=== PATIENT | male | born 1990 | race Caucasian/White ===

== ENCOUNTER 2021-01-20 14:24 | Emergency (ER) | payer OTHER ==
[2021-01-20] MEDS ORDERED: Acetaminophen 500 MG Tab PO ONE (14:58)
[2021-01-20] MEDS ORDERED: Ondansetron 4 MG Tab.DIS PO ONE (14:58)
--- NOTE | 2021-01-20 15:04 | EDM.PDOC ---
ED HPI GENERAL MEDICAL PROBLEM - General Chief Complaint: Head Injury Stated Complaint: FALL AND HIT HEAD Time Seen by Provider: 01/20/21 14:45 Source of Information: Reports: Patient, Family, RN. Denies: Old Records History Limitations: Reports: No Limitations - History of Present Illness INITIAL COMMENTS - FREE TEXT/NARRATIVE: 30 yo male from [facility] was visiting his family locally and fell on the ice and struck the back of his head. Since the fall he has had some amnesia with repeating himself and a mild MAY, and mild nausea without vomiting. He has no back or extremity pain, but does have some mild neck stiffness. There was no bleeding. He is not on any anticoagulants. He thinks he may have had a mild concussion once in the past. Not tx prior to arrival. Is here with his parents. Onset: Today, Sudden Onset Date: 01/20/21 Duration: Hour(s): (2), Improving Location: Reports: Head Quality: Reports: Ache Severity: Mild Improves with: Reports: Other (time) Worsens with: Reports: Other (none) Context: Reports: Trauma Associated Symptoms: Reports: Headaches (mild), Nausea/Vomiting (mild, no vomiting), Other (amnesia, improving). Denies: Fever/Chills Treatments PRODUCE ASSOCIATE: Reports: Other (see below) (none) Headache Pain Score (Numeric/FACES): 4 - Related Data Allergies Allergy/AdvReac Type Severity Reaction Status Date / Time Sulfa (Sulfonamide Allergy Arrhythmias Verified 01/20/21 14:46 Antibiotics) Past Medical History - Past Health History Medical/Surgical History: Denies Medical/Surgical History Social & Family History - Tobacco Use Tobacco Use Status *Q: Never Tobacco User ED ROS GENERAL - Review of Systems Review Of Systems: See Below Constitutional: Reports: No Symptoms HEENT: Reports: No Symptoms Respiratory: Reports: No Symptoms Cardiovascular: Reports: No Symptoms GI/Abdominal: Reports: Nausea. Denies: Diarrhea, Vomiting : Reports: No Symptoms Musculoskeletal: Reports: Neck Pain (mild) Skin: Reports: No Symptoms Neurological: Reports: Confusion (amnesia, improving), Headache (mild) Psychiatric: Reports: No Symptoms ED EXAM, HEAD INJURY - Physical Exam Exam: See Below Exam Limited By: No Limitations General Appearance: Alert, WD/WN, No Apparent Distress Head: Atraumatic, Normocephalic, Scalp Tenderness (minimal occipital). No: Scalp Lacerations, Scalp Swelling, Scalp Abrasions, Scalp Ecchymosis, Scalp Hematoma, Active Bleeding, Facial Swelling, Raccoon Eyes Nexus Criteria: No: Evidence of Intoxication, Altered Level of Consciousness, Focal Neurological Deficit Eyes: Right Eye: Normal Fundi, Bilateral Eye: EOMI, Normal Inspection, PERRL Ears: Normal External Exam, Normal Canal, Hearing Grossly Normal, Normal TMs Nose: Normal Inspection, No Blood. No: Clear Rhinorrhea Throat/Mouth: Normal Inspection, Normal Lips, Normal Oropharynx, Normal Voice, No Airway Compromise Neck: Full Range of Motion, Normal Alignment, Normal Inspection. No: Limited Range of Motion (subjective mild stiffness only) Respiratory: No Respiratory Distress, Lungs Clear, Normal Breath Sounds, No Accessory Muscle Use Cardiovascular: Regular Rate, Rhythm, No Edema Back Exam: Normal Inspection Extremities: Normal Inspection, Normal Range of Motion, Non-Tender Neurologic: head worker II-XII nml As Tested, No Motor/Sensory Deficits, Alert, Normal Mood/Affect, Oriented x 3 Skin: Normal Color, Warm/Dry - Melecio Coma Score Best Eye Response ([place]lecio): (4) Open Spontaneously Best Verbal Response ([place]): (5) Oriented Best Motor Response ([place]): (6) Obeys Commands Melecio Total: 15 Course - Vital Signs Last Recorded V/S: Last Vital Signs Temp 36.8 C 01/20/21 14:42 Pulse 98 01/20/21 14:42 Resp 16 01/20/21 14:42 BP 143/73 H 01/20/21 14:42 Pulse Ox 99 01/20/21 14:42 - Orders/Labs/Meds Meds: Medications Discontinued Medications Generic Name Dose Route Start Last Admin Trade Name Freq PRN Reason Stop Dose Admin Acetaminophen 1,000 mg 01/20/21 14:58 01/20/21 15:05 Acetaminophen 500 Mg Tab PO 01/20/21 14:59 1,000 mg ONETIME ONE Administration Ondansetron HCl 4 mg 01/20/21 14:58 01/20/21 15:05 Ondansetron 4 Mg Tab.Dis PO 01/20/21 14:59 4 mg ONETIME ONE Administration Departure - Departure Time of Disposition: 15:56 Disposition: Home, Self-Care 01 Condition: Fair Clinical Impression: Amnesia Concussion Qualifiers: Encounter type: initial encounter Loss of consciousness presence/duration: without LOC Qualified Code(s): S06.0X0A - Concussion without loss of cons ciousness, initial encounter - Discharge Information *PRESCRIPTION DRUG MONITORING PROGRAM REVIEWED*: Not Applicable *COPY OF PRESCRIPTION DRUG MONITORING REPORT IN PATIENT CECILIA: Not Applicable Instructions: Concussion, Adult, [id number], Post-Concussion Syndrome, [id number] Referrals: PCP,None [Primary Care Provider] - Forms: ED Department Discharge Additional Instructions: Acetaminophen as needed for headache. Rest. Avoid exertion. No work today or until all his current symptoms have resolved. Sepsis Event Note (ED) - Evaluation Sepsis Screening Result: No Definite Risk - Focused Exam Vital Signs: Vital Signs Temp Pulse Resp BP Pulse Ox 01/20/21 14:42 36.8 C 98 16 143/73 H 99
== END 2021-01-20 16:14 | disposition home or self-care (01) ==
LOC: JP.ED 14:24
DX: S06.0X0A Concussion without loss of consciousness, initial encounter (principal); R41.3 Other amnesia; Z88.2 Allergy status to sulfonamides; W00.0XXA Fall on same level due to ice and snow, initial encounter
CPT/HCPCS: 99283; A9270